=== PATIENT | female | born 1965 | race Caucasian/White ===

== ENCOUNTER 2017-11-12 06:31 | Day surgery (SDC) | payer BC ==
[2017-11-12] MEDS ORDERED: Propofol 200 MG/20 ML SDV ONE (06:57)
[2017-11-12] MEDS ORDERED: fentaNYL 250 MCG/5 ML SDV ONE (06:57)
[2017-11-12] MEDS ORDERED: Midazolam 1 MG/ML 2 ML SDV ONE (06:59)
[2017-11-12] MEDS ORDERED: ceFAZolin 2 GM in Premix Bag 1 BAG IV ONE (07:00)
[2017-11-12] MEDS ORDERED: Lactated Ringers 1,000 ML IV SCH (07:00)
[2017-11-12] MEDS ORDERED: Ondansetron 4 MG/2 ML SDV ONE (07:01)
[2017-11-12] MEDS ORDERED: Dexamethasone 4 MG/ML 5 ML MDV ONE (07:01)
[2017-11-12] MEDS ORDERED: ceFAZolin/Dextrose,Iso-Osmotic 2 GM/50 ML Duplex Bag IV ONE (07:04)
--- NOTE | 2017-11-12 07:21 | PCM.PREANE ---
Preanesthetic Assessment - Anesthesia/Transfusion/Family Hx Anesthesia History: Prior Anesthesia Without Reaction Family History of Anesthesia Reaction: No Transfusion History: No Prior Transfusion(s) Intubation History: Unknown - Review of Systems General: No Symptoms Pulmonary: No Symptoms Cardiovascular: No Symptoms Gastrointestinal: No Symptoms Neurological: No Symptoms Other: Reports: None - Physical Assessment Height: 1.75 m Weight: 99.337 kg ASA Class: 2 Mental Status: Alert & Oriented x3 Airway Class: Mallampati = 2 Dentition: Reports: Normal Dentition Thyro-Mental Finger Breadths: 3 Mouth Opening Finger Breadths: 2 ROM/Head Extension: Full Lungs: Clear to Auscultation, Normal Respiratory Effort Cardiovascular: Regular Rate, Regular Rhythm - Allergies Allergies/Adverse Reactions: Allergies Allergy/AdvReac Type Severity Reaction Status Date / Time adhesive Allergy Blisters Verified 11/11/17 14:52 citalopram Allergy Anxiety Verified 11/11/17 14:52 lorazepam [From Ativan] Allergy Anxiety Verified 11/11/17 14:52 - Blood Blood Available: No - Anesthesia Plan Pre-Op Medication Ordered: None - Acknowledgements Anesthesia Type Planned: General Anesthesia Pt an Appropriate Candidate for the Planned Anesthesia: Yes Alternatives and Risks of Anesthesia Discussed w Pt/Guardian: Yes Pt/Guardian Understands and Agrees with Anesthesia Plan: Yes PreAnesthesia Questionnaire Other HEENT History: wears glasses Cardiovascular History: Reports: Other (See Below) (borderline HTN) Respiratory History: Reports: Sleep Apnea Other Respiratory History: mild-moderate sleep apnea, no CPAP Musculoskeletal History: Reports: Fracture, Osteoarthritis, Other (See Below) ( osteopenia) Other Musculoskeletal History: hx of fx ankle Neurological History: Reports: Other (See Below) (headaches) Psychiatric History: Reports: Depression, Panic Attack Endocrine/Metabolic History: Reports: Obesity/BMI 30+ - Past Surgical History GI Surgical History: Reports: Cholecystectomy, Colonoscopy, EGD, ERCP Female Surgical History: Reports: Endometrial Ablation, Tubal Ligation Endocrine Surgical History: Reports: Thyroidectomy Other Endocrine Surgeries/Procedures: partial Thyroidectomy Musculoskeletal Surgical History: Reports: Arthroscopic Knee (bilateral) - SUBSTANCE USE Smoking Status *Q: Never Smoker Recreational Drug Use History: No - HOME MEDS Home Medications: Home Meds Calcium Carbonate/Vitamin D3 [Calcium 250+D] 1 tab PO DAILY 11/11/17 [History] Cholecalciferol (Vitamin D3) [Vitamin D3] 12 drop PO DAILY 11/11/17 [History] Collodial Silver 1 tsp PO DAILY 11/11/17 [History] Cyanocobalamin (Vitamin B12) [Vitamin B12] 100 mcg PO DAILY 11/11/17 [History] Krill Oil 500 mg PO DAILY 11/11/17 [History] Magnesium 30 mg PO DAILY 11/11/17 [History] Multivitamin [Multiple Vitamins] 1 tab PO DAILY 11/11/17 [History] - CURRENT (IN HOUSE) MEDS Current Meds: Current Medications Cefazolin Sodium/Dextrose 2 gm (/ Premix) 50 mls @ 100 mls/hr IV ONETIME ONE Stop: 11/12/17 07:29 Lactated Ringer's (Ringers, Lactated) 1,000 mls @ 125 mls/hr IV ASDIRECTED BILLY Discontinued Medications Cefazolin Sodium/Dextrose (Ancef) Confirm Administered Dose 2 gm IV .STK-MED ONE Stop: 11/12/17 07:05 Dexamethasone (Dexamethasone) Confirm Administered Dose 20 mg .ROUTE .STK-MED ONE Stop: 11/12/17 07:02 Fentanyl (Sublimaze) Confirm Administered Dose 250 mcg .ROUTE .STK-MED ONE Stop: 11/12/17 06:58 Lidocaine HCl (Xylocaine-Mpf 1%) Confirm Administered Dose 5 ml .ROUTE .STK-MED ONE Stop: 11/12/17 07:02 Midazolam HCl (Versed 1 Mg/Ml) Confirm Administered Dose 2 mg .ROUTE .STK-MED ONE Stop: 11/12/17 07:00 Ondansetron HCl (Zofran) Confirm Administered Dose 4 mg .ROUTE .STK-MED ONE Stop: 11/12/17 07:02 Propofol (Diprivan 20 Ml) Confirm Administered Dose 200 mg .ROUTE .STK-MED ONE Stop: 11/12/17 06:58
[2017-11-12] MEDS ORDERED: Scopolamine 1.5 MG Transdermal Patch TRDERM PRN (07:26)
[2017-11-12] MEDS ORDERED: Bupivacaine 0.5% 30 ML SDV ONE (07:40)
[2017-11-12] MEDS ORDERED: Lidocaine 1% 20 ML MDV ONE (07:40)
[2017-11-12] MEDS ORDERED: Rocuronium 10 MG/ML 10 ML Syringe ONE (08:08)
[2017-11-12] MEDS ORDERED: Succinylcholine/Normal Saline 200 MG/10 ML Syringe ONE (08:08)
[2017-11-12] MEDS ORDERED: ePHEDrine 50 MG/ML SDV ONE (08:08)
[2017-11-12] MEDS ORDERED: fentaNYL 100 MCG/2 ML SDV IVPUSH PRN (08:20)
[2017-11-12] MEDS ORDERED: Glycopyrrolate 0.2 MG/ML SDV ONE ×2 (08:44→08:50)
[2017-11-12] MEDS ORDERED: Phenylephrine 1% 10 MG/ML SDV ONE (08:45)
--- NOTE | 2017-11-12 10:43 | PCM.OPNOTE ---
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
[2017-11-12] MEDS ORDERED: Acetaminophen/HYDROcodone 325-7.5 MG Tab PO PRN (10:46)
--- NOTE | 2017-11-12 10:57 | PCM.POSTAN ---
POST ANESTHESIA ASSESSMENT - MENTAL STATUS Mental Status: Alert, Oriented - RESPIRATORY Respiratory Status: Respiratory Rate WNL, Airway Patent, O2 Saturation Stable - CARDIOVASCULAR CV Status: Pulse Rate WNL, Blood Pressure Stable - GASTROINTESTINAL GI Status: No Symptoms - POST OP HYDRATION Hydration Status: Adequate & Stable
--- NOTE | 2017-11-12 11:36 | PN ---
PREOPERATIVE DIAGNOSIS: Fifth metatarsal fracture with nonunion, left foot. OPERATIVE PROCEDURE: Open reduction with internal fixation of fifth metatarsal fracture, left foot. SURGEON: Swapnil Ty DPM ANESTHESIA: General. HEMOSTASIS: An above ankle pneumatic tourniquet. ALLERGIES: The patient has allergies to adhesive agents, to Ativan, and to citalopram. MEDICATIONS: 1. Calcium with vitamin D. 2. Vitamin B12. 3. Magnesium. 4. Multivitamin. 5. Krill oil. 6. Vitamin D. 7. Colloidal silver. PAST MEDICAL HISTORY: Significant for osteoarthritis, depression, headaches, panic attacks, mild sleep apnea, reflux, and tingling. PAST SURGICAL HISTORY: Right knee scope, tubal ligation, colonoscopy, partial thyroidectomy, left knee scope, hysterectomy with endometrial ablation, gallbladder removal, and EGD. The patient has tolerated anesthesia well in the past. LABORATORY DATA: Hemoglobin 12.2, hematocrit 39.1. Glucose 93, calcium 10.2, BUN 14, creatinine 0.91. Sodium 147, potassium 3.7, chloride 102. The patient's H and P states that the BMP was unremarkable. EKG; sinus rhythm with a marked sinus arrhythmia, considered a borderline EKG. PLAN: H and P notes no contraindications to surgery, considers surgery to be low risk. The patient presents for open reduction and internal fixation surgery of left foot today. No guarantees expressed or implied. ARETHA SHEARER /[id number]
--- NOTE | 2017-11-12 12:20 | PCM48HPAN ---
Post Anesthesia Note - EVALUATION WITHIN 48HRS OF ANESTHETIC Vital Signs in Normal Range: Yes Patient Participated in Evaluation: Yes Respiratory Function Stable: Yes Airway Patent: Yes Cardiovascular Function Stable: Yes Hydration Status Stable: Yes Pain Control Satisfactory: Yes Nausea and Vomiting Control Satisfactory: Yes Mental Status Recovered: Yes Resp Rate: 12 - COMMENTS/OBSERVATIONS Free Text/Narrative:: no anesthesia problems
--- NOTE | 2017-11-12 14:42 | CR ---
EXAMINATION: Left foot HISTORY: ORIF COMPARISON: None TECHNIQUE: 4 views FINDINGS/IMPRESSION: Operative control films demonstrate screw and plate fixation of the proximal fif th metatarsal.
--- NOTE | 2017-11-12 18:00 | OR ---
SURGEON: Swapnil yT DPM DATE OF PROCEDURE: 11/12/2017 PREOPERATIVE DIAGNOSIS: Fracture with nonunion fifth metatarsal, left foot. POSTOPERATIVE DIAGNOSIS: Fracture with nonunion fifth metatarsal, left foot. OPERATIVE PROCEDURE: Open reduction with internal fixation of fifth metatarsal fracture of left foot. ANESTHESIA: General. HEMOSTASIS: Above ankle pneumatic tourniquet inflated to a pressure of 250 mmHg after an Esmarch bandage exsanguination of the left foot. ESTIMATED BLOOD LOSS: 5 mL. PATHOLOGY: None. MATERIALS: 3-0 Vicryl, 4-0 Vicryl, 4-0 Prolene, one Marga VariAx hand plate 7-hole; Marga nonlocking screws 10 mm x 2.3 mm diameter one screw, 12 mm x 2.3 mm x4; [place] locking screws, 12 mm x 2.3 mm diameter x2. JUSTIFICATION FOR THE PROCEDURE: The patient, who is a long established patient of mine, suffered a fall and fractured her fifth metatarsal left foot approximately 2 months ago and was treated conservatively since that time. The bone callus did develop a nonunion ultimately developed and was confirmed both on x-ray and with a CT scan. Based on the results of the CT scan, I discussed with the patient that further conservative treatment was likely not to result inadequate bone healing and the patient agreed. The patient agreed and elected to proceed to surgery. The patient consented for open reduction with internal fixation of the fifth metatarsal fracture on the left foot. No guarantees were given or implied. DESCRIPTION OF PROCEDURE: The patient was brought to the operating room and placed on the operating table in supine position at which time an aseptic scrub and drape was performed about the patient's left lower extremity. Preoperative x-rays were taken. The incision site was planned with a marking pen. An Esmarch bandage was used to exsanguinate the left lower extremity and the above ankle pneumatic tourniquet was inflated to a pressure of 250 mmHg. Incision was made with a 15 blade and deepened through the skin and subcutaneous tissue with care is being taken to cut, clamp, ligate, and/or retract away any smaller vascular structures and to retract away any small nerves identified. The incision was deepened to the level of bone with care being taken to retract any tendinous structures identified as well. A large bone callus was identified over the mid section of the fifth metatarsal shaft. The bone was debrided using a rongeur to reapproximate normal contour of the bone and to identified the nonunion area better. was utilized to remove a small portion of bone in the fracture area. Intraoperative fluoroscopy was used throughout the procedure to guide the bone debridement and also placement of hardware. The area was flushed throughout the procedure with copious amounts of normal sterile saline. After all nonviable bone that could be identified was removed. Approximately 15 K- wire drill holes were made at various angles crossing the fracture site in order to stimulate additional bleeding within the bone to facilitate better healing. A [employer] a Y 7-hole plate was selected and placed over the fifth metatarsal shaft and judged to be an excellent choice for the fixation. It was held in place with multiple K-wires. Holes were drilled for placement of screws. All seven holes were utilized and using the measuring device, screws were selected. Ultimately, the following screws were utilized, seven screws consisting of four 12 mm x 2.3 mm diameter nonlocking screws, one 10 mm x 2.3 mm nonlocking screw, and two 12 mm x 2.3 mm diameter locking screws. Reduction and fixation were judged to be excellent under intraoperative fluoroscopy. The area was flushed again, reinspected, and judged to be properly fixated. The entire area was flushed the final time then dried for layered soft tissue closure, which was accomplished with deeper tissue, reapproximated with 3-0 Vicryl suture, subcutaneous tissue with 4-0 Vicryl suture, and the superficial skin reapproximated with 4-0 Prolene suture in a horizontal fashion. The entire area was infiltrated with 10 mm of 0.5% Marcaine plain, followed by application of Betadine-soaked Xeroform gauze over the surgical site, followed by layered fluff gauze and Aye roll. At this time, the tourniquet was deflated at a time of 112 minutes. A stockinette was placed over the left lower extremity followed by multiple layers of cast padding and a posterior Orthoglass splint, which was secured with a 2 inch and a 3 inch Nick bandage. The patient tolerated the procedure and anesthesia well. There was a prompt hyperemic response to all digits of the left foot following deflation of the tourniquet. After conclusion of the procedure, the patient was transported from the operating room to the recovery room and after the stay, is being discharged home with written and oral instructions, and followup appointment for 9:00 a.m. on October. ARETHA SHEARER /[id number]
== END 2017-11-12 13:53 | disposition home or self-care (01) ==
LOC: MW.SDS 06:31
PROVIDERS: ATTEND Podiatrist Foot & Ankle Surgery
DX: S92.352K Displaced fracture of fifth metatarsal bone, left foot, subsequent encounter for fracture with nonunion (principal); F32.9 Major depressive disorder, single episode, unspecified; K21.9 Gastro-esophageal reflux disease without esophagitis; G47.30 Sleep apnea, unspecified; I10 Essential (primary) hypertension; Z88.8 Allergy status to other drugs, medicaments and biological substances; Z91.09 Other allergy status, other than to drugs and biological substances; Z79.899 Other long term (current) drug therapy; Z98.51 Tubal ligation status; Z90.710 Acquired absence of both cervix and uterus
CPT/HCPCS: 28322; 76001; A9270; C1713; J0690; J1100; J2250; J2370; J2405; J3010; J7120; 01480; J2704

== ENCOUNTER 2024-04-04 15:59 | Emergency (ER) | payer SELFPAY ==
[2024-04-04] MEDS: Ibuprofen 600 MG Tab PO ONE (19:52)
[2024-04-04] MEDS: Lidocaine 4% 1 each Patch TOP STA (20:14)
[2024-04-04] MEDS: Orphenadrine 60 MG/2 ML Inj IM ONE (20:15)
== END 2024-04-04 20:45 | disposition home or self-care (01) ==
LOC: MW.ED 15:59
DX: M75.32 Calcific tendinitis of left shoulder (principal); I10 Essential (primary) hypertension; E66.9 Obesity, unspecified; Z79.899 Other long term (current) drug therapy; Z91.048 Other nonmedicinal substance allergy status; Z88.8 Allergy status to other drugs, medicaments and biological substances; Z68.33 Body mass index [BMI] 33.0-33.9, adult
CPT/HCPCS: 73030; 96372; 99283; A9270; J2360